=== PATIENT | male | born 1965 | race Caucasian/White ===

== ENCOUNTER → 2023-04-20 11:20 | Outpatient (BNVA) | payer OTHER, SELFPAY | PROVIDERS: Family Provider Family Medicine; PCP Family Medicine; Visit Provider Family Medicine | DX: Z13.6 Encounter for screening for cardiovascular disorders (principal); Z00.00 Encounter for general adult medical examination without abnormal findings; M79.671 Pain in right foot; M79.672 Pain in left foot; T78.40XA Allergy, unspecified, initial encounter; E03.9 Hypothyroidism, unspecified; M19.90 Unspecified osteoarthritis, unspecified site | CPT/HCPCS: 80053; 80061; 85651; 86140 ==

== ENCOUNTER 2023-09-29 06:00 | Outpatient (RCR) | payer OTHER, SELFPAY | END 2023-10-18 23:59 | disposition home or self-care (01) | LOC: TPT 06:00 | PROVIDERS: Family Provider Family Medicine; PCP Family Medicine; Visit Provider Family Medicine | DX: S92.002D Unspecified fracture of left calcaneus, subsequent encounter for fracture with routine healing (principal); S92.001D Unspecified fracture of right calcaneus, subsequent encounter for fracture with routine healing; X58.XXXD Exposure to other specified factors, subsequent encounter | CPT/HCPCS: 97110; 97162 ==

== ENCOUNTER 2023-10-19 06:00 | Outpatient (RCR) | payer OTHER, SELFPAY | END 2023-11-18 23:59 | disposition home or self-care (01) | LOC: TPT 06:00 | PROVIDERS: Family Provider Family Medicine; PCP Family Medicine; Visit Provider Family Medicine | DX: S92.002D Unspecified fracture of left calcaneus, subsequent encounter for fracture with routine healing (principal); S92.001D Unspecified fracture of right calcaneus, subsequent encounter for fracture with routine healing; X58.XXXD Exposure to other specified factors, subsequent encounter | CPT/HCPCS: 97110 ==

== ENCOUNTER 2023-11-19 06:00 | Outpatient (RCR) | payer OTHER, SELFPAY | END 2023-12-17 23:59 | disposition home or self-care (01) | LOC: TPT 06:00 | PROVIDERS: Family Provider Family Medicine; PCP Family Medicine; Visit Provider Family Medicine | DX: S92.002D Unspecified fracture of left calcaneus, subsequent encounter for fracture with routine healing (principal); S92.001D Unspecified fracture of right calcaneus, subsequent encounter for fracture with routine healing; X58.XXXD Exposure to other specified factors, subsequent encounter | CPT/HCPCS: 97110 ==

== ENCOUNTER 2023-12-18 06:00 | Outpatient (RCR) | payer OTHER, SELFPAY | END 2024-01-17 23:59 | disposition home or self-care (01) | LOC: TPT 06:00 | PROVIDERS: Family Provider Family Medicine; PCP Family Medicine; Visit Provider Family Medicine | DX: S92.002D Unspecified fracture of left calcaneus, subsequent encounter for fracture with routine healing (principal); S92.001D Unspecified fracture of right calcaneus, subsequent encounter for fracture with routine healing; X58.XXXD Exposure to other specified factors, subsequent encounter | CPT/HCPCS: 97110 ==

== ENCOUNTER 2024-01-18 06:00 | Outpatient (RCR) | payer OTHER, SELFPAY | END 2024-01-26 23:59 | disposition home or self-care (01) | LOC: TPT 06:00 | PROVIDERS: Family Provider Family Medicine; PCP Family Medicine; Visit Provider Family Medicine | DX: S92.002D Unspecified fracture of left calcaneus, subsequent encounter for fracture with routine healing (principal); S92.001D Unspecified fracture of right calcaneus, subsequent encounter for fracture with routine healing; X58.XXXD Exposure to other specified factors, subsequent encounter | CPT/HCPCS: 97110 ==

== ENCOUNTER → 2025-05-04 09:21 | Outpatient (BNVA) | payer OTHER, SELFPAY | PROVIDERS: Family Provider Family Medicine; PCP Family Medicine; Visit Provider Family Medicine | DX: Z00.00 Encounter for general adult medical examination without abnormal findings (principal) | CPT/HCPCS: 80053; 80061 ==

== ENCOUNTER → 2025-09-11 13:51 | Outpatient (BNVA) | payer OTHER, SELFPAY | PROVIDERS: Family Provider Family Medicine; PCP Family Medicine; Visit Provider Family Medicine | DX: N52.9 Male erectile dysfunction, unspecified (principal) | CPT/HCPCS: G0103 ==